=== PATIENT | female | born 1990 | race Caucasian/White ===

== ENCOUNTER 2017-04-30 15:14 | Emergency (ER) | payer OTHER ==
[2017-04-30 15:34] VITALS: BP 124/77; PULSE 87; O2SAT 94
[2017-04-30] MEDS ORDERED: DELTASONE 20 MG PO ONE (15:52)
--- NOTE | 2017-04-30 16:02 | ERPHSYRPT ---
- History of Present Illness Time Seen by Provider: 04/30/17 15:45 Source: patient Exam Limitations: clinical condition Patient Subjective Stated Complaint: two weeks ago developed a sore on her scalp. area is behind left ear. Triage Nursing Assessment: red scabbed area behind left ear under hair noted. yellowish drainage noted. also has white particles on hair shafts. Physician History: PATIENT COMPLAINS OF SCALP RASH FOR 3 WEEKS ASSOCIATED WITH ITCHING AND DRAINAGE. DENIES ASSOCIATED FEVER AND CHILLS. Timing/Duration: week(s) Quality: itchy Severity: moderate Location: scalp Possible Causes: no cause identified Modifying Factors: Improves With: scratching Associated Symptoms: change in skin texture Allergies/Adverse Reactions: No Known Drug Allergies Allergy (Verified 04/30/17 15:21) Home Medications: Escitalopram Oxalate [Lexapro] 20 mg PO HS 04/30/17 [History] Hx Tetanus, Diphtheria Vaccination/Date Given: No Hx Influenza Vaccination/Date Given: No Hx Pneumococcal Vaccination/Date Given: No - Review of Systems Constitutional: No Symptoms Eyes: No Symptoms Ears, Nose, & Throat: No Symptoms Respiratory: No Symptoms Skin: Pruritis, Rash, Skin Lesions Neurological: No Symptoms - Past Medical History Pertinent Past Medical History: Yes Neurological History: No Pertinent History ENT History: No Pertinent History Cardiac History: No Pertinent History Respiratory History: No Pertinent History Endocrine Medical History: No Pertinent History Musculoskeletal History: No Pertinent History GI Medical History: Gallbladder Disease History: No Pertinent History Psycho-Social History: No Pertinent History Female Reproductive Disorders: No Pertinent History - Past Surgical History Past Surgical History: Yes Neuro Surgical History: No Pertinent History Gastrointestinal: Cholecystectomy Female Surgical History: Section - Social History Smoking Status: Current every day smoker How long have you smoked: 10 Exposure to second hand smoke: Yes Drug Use: none Patient Lives Alone: No - Female History Hx Last Menstrual Period: 04/05/17 Hx Now: Yes (17 wks) - Nursing Vital Signs Nursing Vital Signs: Initial Vital Signs Temperature 97.8 F Temperature Source Oral Pulse Rate 87 Respiratory Rate 16 Blood Pressure [Right Arm] 124/77 Pain Intensity 4 - Physical Exam General Appearance: no apparent distress Skin Exam: rash (ERYTHEMATOUS VESICULAR LESIONS OVER LEFT OCCIPITAL SCALP LEFT POST AURICLE) SpO2 Interpretation: normal SpO2: 94 Oxygen Delivery: Room Air Ordered Tests: Active Orders 24 hr Category Date Time Status CULTURE,WOUND Stat Lab 04/30/17 15:51 Uncollected Medication Summary Discontinued Medications Generic Name Dose Route Start Last Admin Trade Name Nga PRN Reason Stop Dose Admin Prednisone 40 mg 04/30/17 15:52 04/30/17 16:05 Deltasone 20 Mg PO 04/30/17 15:53 40 mg STAT ONE Administration Prednisone Confirm 04/30/17 16:04 Deltasone 20 Mg Administered 04/30/17 16:05 Dose 40 mg .ROUTE .STK-MED ONE - Progress Progress Note: 04/30/17 15:58 PATIENT ADMINISTERED PREDNISONE 40MG ORALLY Counseled pt/family regarding: diagnosis, need for follow-up - Departure Time of Disposition: 16:10 Departure Disposition: Home Clinical Impression: SCALP FOLLICULLITIS Condition: Stable Critical Care Time: No Referrals: ROSEY SÁNCHEZ [Primary Care Provider] - Additional Instructions: ANTIBIOTIC AUGMENTIN 875MG TWICE DAILY FOR 10 DAYS. PREDNISONE 40MG DAILY FOR 4 DAYS. TAKE OVER THE COUNTER BENADRYL 50MG EVERY 4 HOURS FOR ITCHING. APPLY TEMOVATE OINTMENT 0.05% OVER SCALP RASH 2-3 TIMES DAILY FOR 10 DAYS. FOLLOWUP WITH YOUR PRIMARY CARE PHYSICIAN AND CADDY MASTER FOR EVALUATION. Prescriptions: Amox Tr/Potass Clav. 875 mg [Augmentin 875-125 Tablet] 875 mg PO BID #20 tablet Clobetasol Propionate Oint [Temovate 0.05% OINTMENT] 15 gm TP TID #2 tube Prednisone 20 mg [Deltasone 20 mg] 2 tab PO DAILY #8 tablet
[2017-04-30] MEDS ORDERED: DELTASONE 20 MG ONE (16:04)
== END 2017-04-30 16:14 | disposition home or self-care (01) ==
LOC: ED 15:14
DX: L73.8 Other specified follicular disorders (principal)
CPT/HCPCS: 87070; 87077; 87186; 99282; 99283; J7506

== ENCOUNTER 2020-02-09 05:03 | Inpatient (IN) | payer MEDICAID ==
[~2020-02-09 05:03] MED LIST: MORPHINE SULFATE 2 MG INJ IV PRN
[2020-02-09] MEDS: Lactated Ringers 1,000 ML IV SCH ×2 (05:57→07:02)
[2020-02-09] MEDS ORDERED: BICITRA 30 ML CUP PO SCH (06:00)
[2020-02-09] MEDS ORDERED: CEFAZOLIN 2 GM-D5W BAG** 2 GM/50 ML ML IV SCH (06:00)
[2020-02-09] MEDS ORDERED: Pepcid 20 MG VIAL IV SCH (06:00)
[2020-02-09] MEDS ORDERED: Reglan 10 MG/2 ML IV SCH (06:00)
[2020-02-09 06:15] LABS: Appearance CLOUDY (CLEAR); Bacteria MANY /HPF (NEGATIVE); Bilirubin NEGATIVE (NEGATIVE); Blood NEGATIVE Ery/ul (0-5); Epithelial Cells MODERATE /HPF (FEW); Glucose NEGATIVE (NEGATIVE); INR 0.99 (0.8-3.0); Ketones NEGATIVE (NEGATIVE); Leukocyte Esterase LARGE (NEGATIVE); Mucus SLIGHT /HPF (NEGATIVE); Nitrite NEGATIVE (NEGATIVE); PROTIME 11.2 SECONDS (9.95-12.35); Protein,Urine Dip 30 (Negative); Specific Gravity 1.025 (1.005-1.025); Urobilinogen 2 mg/dL (0-1); WBC 26-50 /HPF (0-5)
[2020-02-09 06:17] LABS: PTT 30.4 SECONDS (25.3-37.0)
[2020-02-09 06:23] LABS: Amphetamine,Urine NEGATIVE (NEGATIVE); Barbiturate,Urine NEGATIVE (NEGATIVE); Benzodiazepine,Urine NEGATIVE (NEGATIVE); Cocaine,Urine NEGATIVE (NEGATIVE); Methadone,Urine NEGATIVE (NEGATIVE); Opiate,Urine NEGATIVE (NEGATIVE); PCP,Urine NEGATIVE (NEGATIVE); THC,Urine NEGATIVE (NEGATIVE)
[2020-02-09 06:31] LABS: Hematocrit 40.9 % (35-47); Hemoglobin 13.4 gm/dl (12.0-16.0); Mean Cell Volume 88.9 fl (78-100); Mean Corpuscular Hemoglobin 29.1 pg (26-32); Mean Corpuscular Hgb Concent. 32.8 g/dl (32-36); Mean Platelet Volume 10.7 fl (7.5-11.0); Platelet Count 217 K/mm3 (150-450); Red Cell Distribution Width 14.1 % (11.5-14.0); White Blood Count 10.9 K/mm3 (4.0-10.5)
[2020-02-09 06:45] LABS: ABO TYPING A; Antibody Screen NEGATIVE (NEGATIVE); RH TYPING POSITIVE
[2020-02-09] MEDS ORDERED: Astramorph-Pf 5 MG/10 ML ONE (07:12)
[2020-02-09] MEDS ORDERED: Pitocin 10 UNITS/ML ONE ×2 (07:13→08:20)
[2020-02-09] MEDS ORDERED: PHENYLEPHRINE HCL ONE (07:17)
[2020-02-09] MEDS ORDERED: Lactated Ringers 2,000 ML IV ONE (07:46)
[2020-02-09] MEDS ORDERED: Zofran 4 MG/2 ML VIAL ONE (08:49)
[2020-02-09] MEDS ORDERED: Compazine 10 MG/2 ML ONE (09:08)
[2020-02-09] MEDS ORDERED: Dermoplast Spray TP PRN (10:00)
[2020-02-09] MEDS ORDERED: CLARITIN 10 MG PO PRN (10:00)
[2020-02-09] MEDS ORDERED: Dulcolax 10 MG SUPP PR PRN (10:00)
[2020-02-09] MEDS ORDERED: HOLD NARCOTIC ANALGESICS AND SEDATIVES X24 HR MC PRN (10:00)
[2020-02-09] MEDS ORDERED: Anucort-HC SUPPOSITORY PR PRN (10:00)
[2020-02-09] MEDS ORDERED: CORTISONE 1% CREAM TP PRN (10:00)
[2020-02-09] MEDS ORDERED: Zofran 4 MG/2 ML VIAL IV PRN (10:00)
[2020-02-09] MEDS ORDERED: LANSINOH 40 GM TOP PRN (10:00)
[2020-02-09] MEDS ORDERED: Mylicon 80MG PO PRN (10:00)
[2020-02-09] MEDS ORDERED: Nubain 10 MG/ML IV PRN (10:00)
[2020-02-09] MEDS ORDERED: TUCKS TP PRN (10:00)
[2020-02-09] MEDS ORDERED: DEMEROL 50 MG IV PRN (10:00)
[2020-02-09] MEDS ORDERED: PERCOCET TABLET 5/325MG PO PRN (10:00)
[2020-02-09] MEDS ORDERED: BENADRYL 50 MG/ML IV PRN (10:00)
[2020-02-09] MEDS ORDERED: Narcan 0.4 MG/ML IV PRN (10:00)
[2020-02-09] MEDS ORDERED: TORAdol 30 mg Injection IV PRN (10:15)
--- NOTE | 2020-02-09 10:22 | OP ---
SURGERY DATE/TIME: 02/09/2020 0721 PREOPERATIVE DIAGNOSES: 1) Term intrauterine . 2) History of prior section. 3) Morbid obesity. 4) Desires permanent sterilization. POSTOPERATIVE DIAGNOSES: 1) Term intrauterine . 2) History of prior section. 3) Morbid obesity. 4) Desires permanent sterilization. PROCEDURES: 1) Repeat low transverse section. 2) Bilateral tubal ligation. SURGEON: Jakob Luciano M.D. RN FIELD CASE MANAGER: Jose Fair M.D. ANESTHESIA: Spinal by Rob Tran CRNA. ESTIMATED BLOOD LOSS: 300 cc. IV FLUIDS: 2 liters of crystalloid. URINE OUTPUT: 50 cc of clear straw-colored urine. SPECIMENS: Bilateral fallopian tube segments. DESCRIPTION OF PROCEDURE: After informed written consent was obtained, the patient went to the operating room and underwent spinal anesthesia. She was prepped and draped in the usual sterile fashion with assistance of Retentus drape. A low transverse skin incision was made through the area of prior scar and carried down through the subcutaneous fat to the level of the fascia. The fascia was nicked on both sides of the midline and extended horizontal using Bovie and curved Alcantar scissors. The superior edge of the fascia was then grasped with Lucille clamps and the underlying rectus muscles were dissected free. The same was repeated inferiorly. The peritoneal cavity was then opened and extended horizontal in a blunt fashion. Next, the bladder blade was inserted. Bladder flap was created and reflected over the lower uterine segment. A horizontal uterine incision was made by knife and carried down to the level of the amniotic membranes which were carefully artificially ruptured. A viable female infant with loose nuchal x1 was delivered from the vertex presentation with a strong cry immediately upon delivery. Oropharynx and nares were bulb suctioned free. Cord was clamped and cut and she was handed off to the awaiting nursery team. The placenta was then manually extracted from the uterine cavity and the uterus was exteriorized. The uterine cavity was sponge curetted clean with lap sponge and the uterine incision was closed with #1 chromic in a running locked fashion. Good closure and good hemostasis were achieved. The left fallopian tube was then grasped with Abhay and cautery was used to make a window in the mesosalpinx. The proximal and distal tube ends were ligated with chromic tie and the interceding tube segment was dissected free with Metzenbaum scissors. The free end of the tube was then cauterized with electrocautery. The same was repeated on the right side. The posterior cul-de-sac was wiped free of blood and clot. The uterus was returned to the peritoneal cavity. Lateral gutters were wiped free of blood and clot. Again, the uterine incision was noted to be hemostatic with good closure. There was no bleeding from the tubal site on either side. Next, the fascia was closed with 0 Vicryl in a running fashion with good closure and good hemostasis were achieved. Subcutaneous fat was then irrigated with warm, sterile saline. Any areas of bleeding were cauterized with electrocautery. 2-0 Vicryl was used to close the subcutaneous fat area. Finally, the skin layer was closed with dissolvable calvin subcuticular with Dermabond placed over the incision. The patient was transferred to the recovery room in good condition.
[2020-02-09 14:28] LABS: Appearance SLIGHTLY CLOUDY (CLEAR); Bacteria RARE /HPF (NEGATIVE); Bilirubin NEGATIVE (NEGATIVE); Blood SMALL Ery/ul (0-5); Epithelial Cells RARE /HPF (FEW); Glucose NEGATIVE (NEGATIVE); Ketones TRACE (NEGATIVE); Leukocyte Esterase NEGATIVE (NEGATIVE); Mucus MANY /HPF (NEGATIVE); Nitrite NEGATIVE (NEGATIVE); Protein,Urine Dip 30 (Negative); Specific Gravity 1.029 (1.005-1.025); Urobilinogen 2 mg/dL (0-1); WBC 0-2 /HPF (0-5)
[2020-02-09] MEDS ORDERED: Dextrose 5%-Lr IV Solution 1000 ML 1,000 ML IV SCH (15:30)
[2020-02-09] MEDS: MOTRIN 400 MG PO PRN ×2 (17:40→23:57)
[2020-02-09] MEDS: THERAGRAN MULTIVITAMIN PO SCH (19:00)
[2020-02-09] MEDS: TYLENOL EXTRA STRENGTH 500 MG PO PRN (20:45)
[2020-02-09] MEDS: Colace 100 MG PO SCH (22:07)
[2020-02-10 05:18] LABS: Absolute Neutrophil Ct (ANC) 6.86 (1.4-6.9); BASOPHIL % 0.2 % (0.0-0.4); Basophil (Absolute #) 0.02 (0-0.4); Eosinophil % 1.8 % (0.00-5.0); Eosinophil (Absolute #) 0.17 (0-0.5); Hematocrit 32.6 % (35-47); Hemoglobin 10.5 gm/dl (12.0-16.0); Lymphocyte (Absolute #) 2.03 (1.0-4.6); Mean Cell Volume 90.6 fl (78-100); Mean Corpuscular Hemoglobin 29.2 pg (26-32); Mean Corpuscular Hgb Concent. 32.2 g/dl (32-36); Mean Platelet Volume 10.5 fl (7.5-11.0); Monocyte (Absolute #) 0.58 (0.0-1.3); Platelet Count 184 K/mm3 (150-450); Red Cell Distribution Width 14.1 % (11.5-14.0); White Blood Count 9.7 K/mm3 (4.0-10.5)
[2020-02-10] MEDS: MOTRIN 400 MG PO PRN ×3 (06:00→18:44)
[2020-02-10 08:41] VITALS: O2SAT 97
[2020-02-10] MEDS ORDERED: Adacel Vial IM ONE (09:00)
[2020-02-10 09:04] LABS: HIV Antigen/Antibody Combo Non Reactive (Non Reactive); Hepatitis B Sur Ag Screen Non Reactive (Non Reactive); Hepatitis C Antibody by EIA Non Reactive (Non Reactive)
[2020-02-10] MEDS ORDERED: FERREX 150 PO SCH (10:00)
[2020-02-10] MEDS ORDERED: NON-FORMULARY ITEM (Prenatal Vits W-Ca,Fe,Fa(<1mg) [Prenatal] 1 TAB) PO SCH (10:00)
[2020-02-10 10:46] LABS: Immune Status: Immune
[2020-02-10] MEDS: TYLENOL EXTRA STRENGTH 500 MG PO PRN ×2 (11:03→18:20)
[2020-02-10] MEDS: Colace 100 MG PO SCH ×2 (11:03→21:17)
[2020-02-10] MEDS: THERAGRAN MULTIVITAMIN PO SCH (11:04)
[2020-02-10 12:14] LABS: RPR Screen Non Reactive (Non Reactive)
[2020-02-10] MEDS: NORCO 5/325 MG PO PRN (22:57)
[2020-02-11] MEDS: MOTRIN 400 MG PO PRN (01:01)
[2020-02-11] MEDS: NORCO 5/325 MG PO PRN (07:34)
--- NOTE | 2020-02-11 08:43 | PCM.DS ---
Discharge Summary Date of Admission: 02/09/20 05:03 Admitting Physician: JAMIE CASON Consults: Consults on Case 02/09/20 05:00 Notify Anesthesia Provider ROUTINE Notify Physician OF ADMISSION 02/09/20 10:00 Notify Anesthesia Provider PRN Primary Care Provider: JAMIE CASON Allergies Allergies No Known Drug Allergies Allergy (Verified 04/30/17 15:21) Hospital Summary - Hospital Course Hospital Course: patient had repeat with tubal ligation on 02/08 with no complications. has mild lochia, tolerating po and pain well controlled postoperatively. - Vitals & Intake/Output Vital Signs: Vital Signs Temperature 98.0 F 02/11/20 02:00 Pulse Rate 81 02/11/20 02:00 Respiratory Rate 20 02/11/20 02:00 Blood Pressure 101/55 02/11/20 02:00 O2 Sat by Pulse Oximetry 97 02/11/20 02:00 Intake & Output: Intake & Output 02/08/20 02/09/20 02/10/20 02/11/20 11:59 11:59 11:59 11:59 Intake Total 3655 1550 Output Total 600 400 Balance 3055 1150 Weight 143.335 kg - Lab Result Diagrams: 02/10/20 04:25 Lab Results-Last 24 Hrs: Lab Results-Last 24 Hours 02/09/20 Range/Units 06:04 RPR w/Rflx to Titer Non Reactive (Non Reactive) Hep Bs Antigen Non Reactive (Non Reactive) Hepatitis C Ab (EIA) Non Reactive (Non Reactive) HIV Ag/Ab Combo Qual Non Reactive (Non Reactive) HIV Ag/Ab Interpret See Result Note: Rubella Immune Status Immune Rubella IgG Antibody 20 IU/mL Micro Results-Entire Visit: Microbiology 02/09/20 07:51 Urine Culture - Final Catherized MIXED RANDALL; 3 OR MORE TYPES. NO PREDOMINANT ORGANISM. NO FURTHER WORKUP. PLEASE RESUBMIT IF CLINICALLY INDICATED. 02/09/20 06:04 Urine Culture - Final Clean Catch Midstream NO GROWTH - Procedures and Test Procedures and Tests throughout Hospitalization: Therapy Orders & Screens 02/09/20 08:52 Standby Comment: Diagnosis: REPEAT Discharge Exam General Appearance: no apparent distress, alert, obese Neurologic Exam: alert, oriented x 3, cooperative Respiratory Exam: normal breath sounds, lungs clear, No respiratory distress Cardiovascular Exam: regular rate/rhythm, normal heart sounds Gastrointestinal/Abdomen Exam: soft, other (incision clean, dry, intact), No tenderness, No mass Extremity Exam: normal inspection, normal range of motion Final Diagnosis/Problem List - Final Discharge Diagnosis/Problem (1) delivery delivered Current Visit: Yes Status: Acute Code(s): O82 - ENCOUNTER FOR DELIVERY WITHOUT INDICATION (2) Tubal ligation status Current Visit: Yes Status: Acute Code(s): Z98.51 - TUBAL LIGATION STATUS - Discharge Disposition: Home, Self-Care Condition: Stable Prescriptions: [place] Polysaccharides Complex [Ferrex 150] 150 mg PO DAILY #30 capsule Hydrocodone/APAP 5-325 Tab^^^ [[place] 5-325 Tablet^^^] 1 tab PO Q6HPRN PRN # 28 tablet MDD 6 PRN Reason: Pain Continue Vits W-Ca,Fe,FA(<1Mg) [] 1 tab PO DAILY Follow up with: JAMIE CASON MD [Primary Care Provider] - 1 Week
[2020-02-11 12:35] VITALS: BP 120/75; PULSE 80
== END 2020-02-11 10:40 | disposition home or self-care (01) | DRG 785 ==
LOC: OB 05:03
PROVIDERS: ADMIT Family Medicine; ATTEND Family Medicine
PROC: 10D00Z1 Extraction of Products of Conception, Low, Open Approach (ICD-10-PCS; principal; 2020-02-09)
PROC: 0UL70ZZ Occlusion of Bilateral Fallopian Tubes, Open Approach (ICD-10-PCS; 2020-02-09)
DX: O34.211 Maternal care for low transverse scar from previous cesarean delivery (principal); O99.214 Obesity complicating childbirth; E66.01 Morbid (severe) obesity due to excess calories; Z3A.39 39 weeks gestation of pregnancy; Z30.2 Encounter for sterilization; Z37.0 Single live birth
CPT/HCPCS: 36415; 62322; 80055; 80307; 81001; 85025; 85610; 85730; 87086; 88302; 90471; 90715; 94799; J0690; J2274; J2370; J2405; J2590; A9270-GY